=== PATIENT | male | born 1990 | race African-American/Black ===

== ENCOUNTER 2016-11-19 19:50 | Emergency (ER) | payer OTHER ==
--- NOTE | 2016-11-19 21:27 | EDDOCDS ---
Physician Documentation [facility] Name: Chaitanya Landry Age: 26 yrs Sex: Male : 1990 Arrival Date: 11/19/2016 Time: 19:50 Bed I8 / 16 Private MD: Casey - Complete Info On Cds Disposition: 11/19/16 21:09 Discharged to Home/Self Care. Impression: Sprain of collateral ligament of knee. - Condition is Stable. - Discharge Instructions: Elastic Bandage and RICE, Knee Sprain, Knee Immobilizer, [id number]. - Prescriptions for Ibuprofen 600 mg Oral Tablet - take 1 tablet by ORAL route every 6 hours As needed take with food; 30 tablet. - Medication Reconciliation, Local Pharmacy Hours form. - Follow up: [facility]; When: Call to arrange an appointment; Reason: Further diagnostic work-up, Recheck today's complaints, Continuance of care. - Problem is new. - Symptoms are unchanged. Historical: - Allergies: No known drug Allergies; - Home Meds: 1. none - PMHx: none; - PSHx: none; - Social history: Smoking status: Patient states was never smoker of tobacco. No barriers to communication noted, The patient speaks fluent Mauritian, Speaks appropriately for age, Preferred Language: Mauritian. - Family history: Not pertinent. - : The pt / caregiver states he / she is not on anticoagulants. Home medication list is obtained from the patient. - Exposure Risk Screening:: None identified. Vital Signs: 11/19 19:52 BP 115 / 77; Pulse 49; Resp 18 S; Temp 97.4(O); Pulse Ox 100% on R/A; Weight 79.38 kg / gr2 175 lbs (R); Height 6 ft. 1 in. (185.42 cm) (R); Pain 5/10; 21:24 BP 112 / 70; Pulse 55; Resp 18; Temp 97.6(O); Pulse Ox 100% on R/A; jmb 19:52 Body Mass Index 23.09 (79.38 kg, 185.42 cm) gr2 MDM: 20:29 Knee, Complete Ordered. EDMS 21:08 Knee Immobilizer ordered. ke Signatures: Dispatcher [employer] EDMS River Gonzalez, RAMP FLIGHT ATTENDANT RAMP FLIGHT ATTENDANT Betty Hernandez,RN RN lf1 Jesus Covarrubias,RN RN jmb LISED
--- NOTE | 2016-11-19 21:27 | EDDOCDS ---
Nurse's Notes [facility] Name: Chaitanya Landry Age: 26 yrs Sex: Male : 1990 Arrival Date: 11/19/2016 Time: 19:50 Bed I8 / 16 Private MD: Other - Complete Info On Cds Diagnosis: Sprain of collateral ligament of knee Presentation: 11/19 20:01 Presenting complaint: Patient states: Was at work and stepped out of a van and felt his lf1 left knee pop. States pain is currently 6/10. Pt. was able to ambulate into triage area without difficulty or assistance. States he has had "problems" with same knee in the past. Adult Sepsis Screening: The patient does not have new or worsening altered mentation. Patient's respiratory rate is less than 22. Systolic blood pressure is greater than 100. Patient has a qSOFA score of 0- Negative Sepsis Screen. Suicide/Homicide risk assessment- the patient denies having any suicidal and/or homicidal ideations and does not present with any other emotional, behavioral or mental health complaints. Status: The patient is an active duty hvac services professional. Transition of care: patient was not received from another setting of care. 20:01 Acuity: SHAREE Level 4 lf1 20:01 Method Of Arrival: Walkin/Carried/Asstd lf1 Triage Assessment: 20:03 General: Appears in no apparent distress, comfortable, Behavior is cooperative. Pain: lf1 Location: medial aspect of left knee Pain currently is 6 out of 10 on a pain scale. Quality of pain is described as aching, Pain began 1400 today. HIV screening NA for this visit Offered previously. Neurological: Level of Consciousness is awake, alert, Oriented to person, place, time. Cardiovascular: No deficits noted. Respiratory: Respiratory effort is even, unlabored. GI: Denies nausea, vomiting. Derm: Skin is normal. Injury Description: stepped out of van and "popped". Historical: - Allergies: No known drug Allergies; - Home Meds: 1. none - PMHx: none; - PSHx: none; - Social history: Smoking status: Patient states was never smoker of tobacco. No barriers to communication noted, The patient speaks fluent Macedonian, Speaks appropriately for age, Preferred Language: Macedonian. - Family history: Not pertinent. - : The pt / caregiver states he / she is not on anticoagulants. Home medication list is obtained from the patient. - Exposure Risk Screening:: None identified. Screenin:05 Screening information is obtained from the patient. Fall risk: No risks identified. lf1 Assistance ADL's: requires no assistance with activities of daily living. Abuse/DV Screen: The patient / caregiver reports he/she is: not in a situation that causes fear, pain or injury. Nutritional screening: No deficits noted. Advance Directives: Currently, there is no health care proxy. There is no active DNR order. home support is adequate. Assessment: 21:24 General: Patient instructed on discharge instructions. Patient asked if there were any [facility] questions regarding discharge, patient stated no. Patient signed discharge instructions. Patient discharged in stable condition. . Vital Signs: 19:52 BP 115 / 77; Pulse 49; Resp 18 S; Temp 97.4(O); Pulse Ox 100% on R/A; Weight 79.38 kg gr2 (R); Height 6 ft. 1 in. (185.42 cm) (R); Pain 5/10; 21:24 BP 112 / 70; Pulse 55; Resp 18; Temp 97.6(O); Pulse Ox 100% on R/A; jmb 19:52 Body Mass Index 23.09 (79.38 kg, 185.42 cm) gr2 Vitals: 19:52 Log In Time: November 19, 2016 at 19:52. gr2 ED Course: 19:51 Patient visited by Christy Sewell. gr2 19:51 Other - Complete Info On Cds is Private Physician. gr2 19:51 Patient moved to Waiting gr2 19:56 Patient visited by Christy Sewell. gr2 19:56 Patient moved to Pre RCE gr2 20:02 Triage Initiated lf1 20:17 Patient moved to I8 / 16 cz 20:27 [facility] ke 20:27 Patient visited by River Gonzalez FNP. ke 20:27 Patient visited by River Gonzalez FNP. ke 20:34 Patient moved to Radiology philipp 20:56 Patient moved to I8 / 16 philipp 21:04 Patient visited by River Gonzalez FNP. ke 21:08 [facility] is Referral Physician. ke 21:24 The patient / caregiver is instructed regarding the plan of care and ED course. yulia 21:24 No IV's were initiated during this patient's visit. No procedures done that require jmb assistance. Order Results: There are currently no results for this order. Outcome: 21:09 Discharge ordered by Provider. miguelito 21:24 Discharge Assessment: Patient awake, alert and oriented x 3. No cognitive and/or jmb functional deficits noted. Patient verbalized understanding of disposition instructions. Patient awake and alert. obeys commands, Oriented to person, place and time. Patient verbalized understanding of disposition instructions. Patient has no functional deficits. patient administered narcotics - no. The following High Risk Discharge criteria are identified: None. Discharged to home ambulatory, with significant other. Condition: stable Condition: improved. Discharge instructions given to patient, Instructed on discharge instructions, follow up and referral plans. medication usage, Demonstrated understanding of instructions, medications, Pt was receptive of discharge instructions/ teaching. Prescriptions given X 1. No special radiology studies were completed. Property :Personal belongings accompany Pt. 21:26 Patient left the ED. yulia Signatures: Bryan Correa, RN RN Jules Cordero Karl, LIBRARY MEDIA SPECIALIST LIBRARY MEDIA SPECIALIST Betty HernandezRN RN 1 Christy Sewell gr2 Jesus Covarrubias,RN RAFAEL bender ROGER
--- NOTE | 2016-11-20 01:20 | REP ---
Clinical: Trauma. Technique: AP, lateral, bilateral oblique and sunrise views left knee . Findings: The osseous structures and joint spaces are intact and normal. There is no evidence for acute fracture or dislocation. Lateral view cannot exclude small effusion. Surrounding soft tissues are unremarkable. No subcutaneous emphysema or radiodense foreign body. Impression: No acute fracture or dislocation. Cannot exclude small effusion. Signed by Heri Singh MD 11/20/2016 01:12 A
--- NOTE | 2016-11-21 22:27 | EDDOCDS ---
Nurse's Notes [facility] Name: Chaitanya Landry Age: 26 yrs Sex: Male : 1990 Arrival Date: 11/19/2016 Time: 19:50 Bed I8 / 16 Private MD: Other - Complete Info On Cds Diagnosis: Sprain of collateral ligament of knee Presentation: 11/19 20:01 Presenting complaint: Patient states: Was at work and stepped out of a van and felt his lf1 left knee pop. States pain is currently 6/10. Pt. was able to ambulate into triage area without difficulty or assistance. States he has had "problems" with same knee in the past. Adult Sepsis Screening: The patient does not have new or worsening altered mentation. Patient's respiratory rate is less than 22. Systolic blood pressure is greater than 100. Patient has a qSOFA score of 0- Negative Sepsis Screen. Suicide/Homicide risk assessment- the patient denies having any suicidal and/or homicidal ideations and does not present with any other emotional, behavioral or mental health complaints. Status: The patient is an active duty automobile service station attendant. Transition of care: patient was not received from another setting of care. 20:01 Acuity: SHAREE Level 4 lf1 20:01 Method Of Arrival: Walkin/Carried/Asstd lf1 Triage Assessment: 20:03 General: Appears in no apparent distress, comfortable, Behavior is cooperative. Pain: lf1 Location: medial aspect of left knee Pain currently is 6 out of 10 on a pain scale. Quality of pain is described as aching, Pain began 1400 today. HIV screening NA for this visit Offered previously. Neurological: Level of Consciousness is awake, alert, Oriented to person, place, time. Cardiovascular: No deficits noted. Respiratory: Respiratory effort is even, unlabored. GI: Denies nausea, vomiting. Derm: Skin is normal. Injury Description: stepped out of van and "popped". Historical: - Allergies: No known drug Allergies; - Home Meds: 1. none - PMHx: none; - PSHx: none; - Social history: Smoking status: Patient states was never smoker of tobacco. No barriers to communication noted, The patient speaks fluent Estonian, Speaks appropriately for age, Preferred Language: Estonian. - Family history: Not pertinent. - : The pt / caregiver states he / she is not on anticoagulants. Home medication list is obtained from the patient. - Exposure Risk Screening:: None identified. Screenin:05 Screening information is obtained from the patient. Fall risk: No risks identified. lf1 Assistance ADL's: requires no assistance with activities of daily living. Abuse/DV Screen: The patient / caregiver reports he/she is: not in a situation that causes fear, pain or injury. Nutritional screening: No deficits noted. Advance Directives: Currently, there is no health care proxy. There is no active DNR order. home support is adequate. Assessment: 21:24 General: Patient instructed on discharge instructions. Patient asked if there were any [facility] questions regarding discharge, patient stated no. Patient signed discharge instructions. Patient discharged in stable condition. . Vital Signs: 19:52 BP 115 / 77; Pulse 49; Resp 18 S; Temp 97.4(O); Pulse Ox 100% on R/A; Weight 79.38 kg gr2 (R); Height 6 ft. 1 in. (185.42 cm) (R); Pain 5/10; 21:24 BP 112 / 70; Pulse 55; Resp 18; Temp 97.6(O); Pulse Ox 100% on R/A; jmb 19:52 Body Mass Index 23.09 (79.38 kg, 185.42 cm) gr2 Vitals: 19:52 Log In Time: November 19, 2016 at 19:52. gr2 ED Course: 19:51 Patient visited by Christy Sewell. gr2 19:51 Other - Complete Info On Cds is Private Physician. gr2 19:51 Patient moved to Waiting gr2 19:56 Patient visited by Christy Sewell. gr2 19:56 Patient moved to Pre RCE gr2 20:02 Triage Initiated lf1 20:17 Patient moved to I8 / 16 cz 20:27 [facility] ke 20:27 Patient visited by River Gonzalez FNP. ke 20:27 Patient visited by River Gonzalez FNP. ke 20:34 Patient moved to Radiology philipp 20:56 Patient moved to I8 / 16 philipp 21:04 Patient visited by River Gonzalez FNP. ke 21:08 [facility] is Referral Physician. ke 21:24 The patient / caregiver is instructed regarding the plan of care and ED course. yulia 21:24 No IV's were initiated during this patient's visit. No procedures done that require b assistance. 21:34 [facility] Payment Agreement was scanned into [employer] and attached to record. shane 11/20 01:57 Knee, Complete Returned. EDTX 09:41 T-Sheet-- Draft Copy was scanned into [employer] and attached to record. Order Results: Radiology Order: Knee, Complete Test: Knee, Complete REASON FOR EXAMINATION: Trauma; Clinical: Trauma.; ; Technique: AP, lateral, bilateral oblique and sunrise views left knee .; ; Findings: The osseous structures and joint spaces are intact and normal. There; is no evidence for acute fracture or dislocation. Lateral view cannot exclude; small effusion. Surrounding soft tissues are unremarkable. No subcutaneous; emphysema or radiodense foreign body.; ; Impression:; No acute fracture or dislocation. Cannot exclude small effusion.; ; ; Signed by; Heri Singh MD 11/20/2016 01:12 A; Outcome: 11/19 21:09 Discharge ordered by Provider. miguelito 21:24 Discharge Assessment: Patient awake, alert and oriented x 3. No cognitive and/or jmb functional deficits noted. Patient verbalized understanding of disposition instructions. Patient awake and alert. obeys commands, Oriented to person, place and time. Patient verbalized understanding of disposition instructions. Patient has no functional deficits. patient administered narcotics - no. The following High Risk Discharge criteria are identified: None. Discharged to home ambulatory, with significant other. Condition: stable Condition: improved. Discharge instructions given to patient, Instructed on discharge instructions, follow up and referral plans. medication usage, Demonstrated understanding of instructions, medications, Pt was receptive of discharge instructions/ teaching. Prescriptions given X 1. No special radiology studies were completed. Property :Personal belongings accompany Pt. 21:26 Patient left the ED. yulia Signatures: Dispatcher [facility] EDTX Bryan Correa RN RN cz Bartlett, Floyd fab Barnhardt, Gloria, Reg Reg River Morrison, AFTERNOON NANNY AFTERNOON NANNY Betty Hernandez RN RN lf1 Christy Sewell gr2 Jesus Covarrubias RN RN jmb Beck, Gabriela gj Chart Complete MTDD
--- NOTE | 2016-11-21 22:27 | EDDOCDS ---
Physician Documentation [facility] Name: Chaitanya Landry Age: 26 yrs Sex: Male : 1990 Arrival Date: 11/19/2016 Time: 19:50 Bed I8 / 16 Private MD: Casey - Complete Info On Cds Disposition: 11/19/16 21:09 Discharged to Home/Self Care. Impression: Sprain of collateral ligament of knee. - Condition is Stable. - Discharge Instructions: Elastic Bandage and RICE, Knee Sprain, Knee Immobilizer, [id number]. - Prescriptions for Ibuprofen 600 mg Oral Tablet - take 1 tablet by ORAL route every 6 hours As needed take with food; 30 tablet. - Medication Reconciliation, Local Pharmacy Hours form. - Follow up: [facility]; When: Call to arrange an appointment; Reason: Further diagnostic work-up, Recheck today's complaints, Continuance of care. - Problem is new. - Symptoms are unchanged. Historical: - Allergies: No known drug Allergies; - Home Meds: 1. none - PMHx: none; - PSHx: none; - Social history: Smoking status: Patient states was never smoker of tobacco. No barriers to communication noted, The patient speaks fluent Japanese, Speaks appropriately for age, Preferred Language: Japanese. - Family history: Not pertinent. - : The pt / caregiver states he / she is not on anticoagulants. Home medication list is obtained from the patient. - Exposure Risk Screening:: None identified. Vital Signs: 11/19 19:52 BP 115 / 77; Pulse 49; Resp 18 S; Temp 97.4(O); Pulse Ox 100% on R/A; Weight 79.38 kg / gr2 175 lbs (R); Height 6 ft. 1 in. (185.42 cm) (R); Pain 5/10; 21:24 BP 112 / 70; Pulse 55; Resp 18; Temp 97.6(O); Pulse Ox 100% on R/A; jmb 19:52 Body Mass Index 23.09 (79.38 kg, 185.42 cm) gr2 MDM: 20:29 Knee, Complete Ordered. EDMS 21:08 Knee Immobilizer ordered. ke 21:34 [facility] Payment Agreement was scanned into [employer] and attached to record. gjb 21:34 Financial registration complete. gjb 11/20 09:41 T-Sheet-- Draft Copy was scanned into [employer] and attached to record. gb Signatures: Dispatcher [employer] EDBreana Melchor, Reg Reg gb River Gonzalez, PAINT PROCESS ENGINEER PAINT PROCESS ENGINEER Betty Hernandez,RN RN lf1 Jesus Covarrubias,RN RN Leslie Swanson The chart was reviewed and I authenticate all verbal orders and agree with the evaluation and treatment provided.Attachments: 11/19 21:34 [facility] Payment Agreement gjb 11/20 09:41 T-Sheet-- Draft Copy gb Chart Complete MTDD
--- NOTE | 2016-11-21 22:27 | EDDOCDS ---
Physician Documentation [facility] Name: Chaitanya Landry Age: 26 yrs Sex: Male : 1990 Arrival Date: 11/19/2016 Time: 19:50 Bed I8 / 16 Private MD: Casey - Complete Info On Cds Disposition: 11/19/16 21:09 Discharged to Home/Self Care. Impression: Sprain of collateral ligament of knee. - Condition is Stable. - Discharge Instructions: Elastic Bandage and RICE, Knee Sprain, Knee Immobilizer, [id number]. - Prescriptions for Ibuprofen 600 mg Oral Tablet - take 1 tablet by ORAL route every 6 hours As needed take with food; 30 tablet. - Medication Reconciliation, Local Pharmacy Hours form. - Follow up: [facility]; When: Call to arrange an appointment; Reason: Further diagnostic work-up, Recheck today's complaints, Continuance of care. - Problem is new. - Symptoms are unchanged. Historical: - Allergies: No known drug Allergies; - Home Meds: 1. none - PMHx: none; - PSHx: none; - Social history: Smoking status: Patient states was never smoker of tobacco. No barriers to communication noted, The patient speaks fluent Hungarian, Speaks appropriately for age, Preferred Language: Hungarian. - Family history: Not pertinent. - : The pt / caregiver states he / she is not on anticoagulants. Home medication list is obtained from the patient. - Exposure Risk Screening:: None identified. Vital Signs: 11/19 19:52 BP 115 / 77; Pulse 49; Resp 18 S; Temp 97.4(O); Pulse Ox 100% on R/A; Weight 79.38 kg / gr2 175 lbs (R); Height 6 ft. 1 in. (185.42 cm) (R); Pain 5/10; 21:24 BP 112 / 70; Pulse 55; Resp 18; Temp 97.6(O); Pulse Ox 100% on R/A; jmb 19:52 Body Mass Index 23.09 (79.38 kg, 185.42 cm) gr2 MDM: 20:29 Knee, Complete Ordered. EDMS 21:08 Knee Immobilizer ordered. ke 21:34 [facility] Payment Agreement was scanned into [employer] and attached to record. gjb 21:34 Financial registration complete. gjb 11/20 09:41 T-Sheet-- Draft Copy was scanned into [employer] and attached to record. gb Signatures: Dispatcher [employer] EDBreana Melchor, Reg Reg gb River Gonzalez, SAUSAGE TIER SAUSAGE TIER Betty Hernandez,RN RN lf1 Jesus Covarrubias,RN RN Leslie Swanson The chart was reviewed and I authenticate all verbal orders and agree with the evaluation and treatment provided.Attachments: 11/19 21:34 [facility] Payment Agreement gjb 11/20 09:41 T-Sheet-- Draft Copy gb Chart Complete MTDD
== END 2016-11-19 21:26 | disposition home or self-care (01) ==
LOC: M ED 19:50
DX: S86.912A Strain of unspecified muscle(s) and tendon(s) at lower leg level, left leg, initial encounter (principal); S83.92XA Sprain of unspecified site of left knee, initial encounter; X58.XXXA Exposure to other specified factors, initial encounter; Y92.89 Other specified places as the place of occurrence of the external cause; Y93.89 Activity, other specified; Y99.1 Military activity